=== PATIENT | female | born 1990 | race Caucasian/White ===

== ENCOUNTER 2020-02-17 06:47 | Outpatient (NON) | payer OTHER, SELFPAY ==
[2020-02-17 18:35] LABS: SARS-CoV-2 RNA PCR Negative
== END 2020-02-17 06:48 ==
PROVIDERS: Visit Provider Family Medicine
DX: R05 Cough (principal); Z20.828 Contact with and (suspected) exposure to other viral communicable diseases
CPT/HCPCS: 87635; C9803; U0003

== ENCOUNTER 2020-07-31 10:16 | Outpatient (CLI) | payer OTHER, SELFPAY ==
--- NOTE | ~2020-07-31 | XR_ITS ---
EXAMINATION: XR hip BI wo pelvis EXAM DATE: 07/31/2020 10:34 INDICATION: Bilateral hip joint pain. Runner. TECHNIQUE: Each hip imaged independently (separate right and also left hip) 'frog leg' and frontal p rojections for interpretation. Correlation is made to sacrococcygeal exam 2004. FINDINGS: No radiographic evidence of hip avascular necrosis. There are no acute fractures or disloc ations identified. There is no subcutaneous gas. The soft tissue is unremarkable. There are no ra diopaque foreign bodies. IMPRESSION: Normal x-ray exam. Reviewed, dictated and finalized at location A. [employer] ARCHITECT IMPRESSION: Normal x-ray exam.
== END 2020-07-31 10:17 | disposition home or self-care (01) ==
PROVIDERS: PCP Family Medicine; Visit Provider Family Medicine
DX: M25.551 Pain in right hip (principal); M25.552 Pain in left hip
CPT/HCPCS: 73521

== ENCOUNTER 2021-01-20 08:57 | Outpatient (CLI) | payer OTHER, SELFPAY ==
--- NOTE | ~2021-01-20 | MR_ITS ---
EXAMINATION: MR hip RT wo con DATE: 01/20/2021 11:12 INDICATION: Right hip pain TECHNIQUE: Magnetic resonance imaging (MRI) of the right hip was performed without intravenous contr ast. Sequences included full-field axial PD-weighted FS FSE and T1-weighted FSE, coronal of the pelvi s with PD-weighted FS FSE, small field of view of the right hip with axial PD-weighted FS FSE, sagit eliz PD-weighted FS FSE and coronal PD weighted FS FSE. Additional radial T1-weighted FGR oriented ort hogonal to the acetabular rim were obtained for evaluation of the labrum. COMPARISON: None FINDINGS: Bones/labrum/cartilage: Alignment is normal. No fracture, avascular necrosis or pathologic marrow replacing process. Labrum is normal. Articular cartilage is normal. There is mild cystic change at the anterior right femoral h ead neck junction which can be seen with femoral acetabular impingement. There does not however appea r to be abnormal decrease in femoral head neck offset. Fluid: Symmetric physiologic amount of fluid within both hip joints. Soft tissues: Normal and symmetric muscle bulk and signal in the pelvis and visualized proximal thighs. The iliopso as, gluteal and proximal hamstring tendons are normal. Limited evaluation of visceral organs of the p jana is unremarkable. No pathologically enlarged pelvic/inguinal lymphadenopathy. IMPRESSION: 1. Mild cystic change at the anterior right femoral head neck junction which could be seen with impin gement although the femoral head neck and acetabular morphology appears normal. Otherwise unremarkabl e right hip MRI with normal cartilage, labrum and tendons. Reviewed, dictated and finalized at location A. IMPRESSION: 1. Mild cystic change at the anterior right femoral head neck junction which co uld be seen with impingement although the femoral head neck and acetabular morp hology appears normal. Otherwise unremarkable right hip MRI with normal cartila ge, labrum and tendons.
--- NOTE | ~2021-01-20 | MR_ITS ---
EXAMINATION: MR abdomen wo/w con DATE: 01/20/2021 11:19 INDICATION: Liver mass. TECHNIQUE: Magnetic resonance imaging (MRI) of the abdomen was performed without and with 10 mL Multi Karlos intravenous contrast. Sequences included coronal T2-weighted FS FSE, coronal and axial FS FIEST A, axial T2-weighted FSE, coronal LAVA-flex, axial STIR FSE, axial DWI, axial dual-echo T1-weighted F SPGR, and axial LAVA. Postcontrast sequences included coronal LAVA-flex and a time course of axial LA VA. COMPARISON: None. FINDINGS: There is a 9 mm mass in segment IVb of the liver with delayed hyperenhancement. There is a 13 mm mass in segment V of the liver with peripheral nodule of delayed hyperenhancement. There is a 6 mm cyst i n the spleen. There is at least partial pancreas divisum. The adrenal glands and kidneys are normal. There are no dilated loops of bowel. There are no pathologically enlarged lymph nodes. There is no fr ee intraperitoneal fluid. IMPRESSION: 1. Two liver masses with the larger measuring 13 mm. In the absence of known malignancy or chronic li oscar disease, these findings are likely benign masses such as hemangiomas. Reviewed, dictated and finalized at location A. IMPRESSION: 1. Two liver masses with the larger measuring 13 mm. In the absence of known ma lignancy or chronic liver disease, these findings are likely benign masses such as hemangiomas.
[2021-01-20 09:53] LABS: Estimated Glomerular Filt Rate > 60
== END 2021-01-20 08:58 | disposition home or self-care (01) ==
LOC: ANHIMG 09:03
PROVIDERS: PCP Family Medicine; Visit Provider Family Medicine
DX: R93.2 Abnormal findings on diagnostic imaging of liver and biliary tract (principal)
CPT/HCPCS: 73721; 74183; A9577

== ENCOUNTER 2024-10-21 14:58 | Outpatient (CLI) | payer OTHER, SELFPAY ==
--- NOTE | ~2024-10-21 | XR_ITS ---
AP and oblique views of the right ribs, and PA chest radiograph Clinical History: Pain Findings: Subacute fracture of the right seventh rib noted. Osseous alignment is anatomic. Lungs are clear, without focal consolidation or pleural effusion. Cardiomediastinal contour is within normal li mits. Soft tissues are unremarkable. Impression: Subacute fracture of the right seventh rib. Clear lungs. Reviewed, dictated and finalized at [facility]. Impression: Subacute fracture of the right seventh rib. Clear lungs.
== END 2024-10-21 14:59 | disposition home or self-care (01) ==
LOC: MICIMG 15:03
PROVIDERS: PCP Nurse Practitioner Family; Visit Provider Nurse Practitioner Family
DX: S22.31XD Fracture of one rib, right side, subsequent encounter for fracture with routine healing (principal); X58.XXXD Exposure to other specified factors, subsequent encounter
CPT/HCPCS: 71101